=== PATIENT | female | born 2000 | race American Indian/Alaskan Native ===

== ENCOUNTER 2021-08-29 14:48 | Emergency (ER) | payer OTHER ==
[2021-08-29] MEDS ORDERED: SODIUM CHLORIDE 0.9% 1000 ML 1,000 ML IV ONE ×4 (15:01→19:02)
--- NOTE | 2021-08-29 15:01 | Emergency Department Report ---
HPI - General Chief Complaint: Altered Mental Status Time Seen by Provider: 08/29/21 14:54 - HPI HPI: 21-year-old female brought in by mom with altered mental status as well as complaint of abdominal pain and vomiting. According to the patient's mom, after waking up this morning around 10 AM she began to complain of abdominal cramping which she attributed to her menstrual period which started this morning. Then she began vomiting and mom noted that she seemed confused. While on the way to the emergency room mom says she vomited green appearing emesis. Since then she has been alternating between screaming agitation and complaining of abdominal pain and then becoming very somnolent to the point of almost losing consciousness. The patient denies taking any substances or medications of any kind. Mom says she did ask for Aleve but did not witness the patient take it. The patient states that she has abdominal pain which is very severe and all over. She is unable to localize the pain and says that it also goes to her back. She denies any associated fever, headache, neck pain, chest pain, shortness of breath, dysuria, significant vaginal bleeding, or any other complaints. Nonetheless, details of the HPI are limited by the patient's c urrent clinical condition. ED Past Medical Hx - Past Medical History Previous Medical History?: No - Surgical History Past Surgical History?: No - Social History Smoking Status: Never Smoker Substance Use Type: None - Medications Home Medications: Home Medications Medication Instructions Recorded Confirmed Last Taken Type Ondansetron [Zofran Odt] 4 mg PO Q8HR PRN #5 tab.rapdis 08/29/21 Unknown Rx ED Review of Systems ROS: Stated complaint: INGESTION Other details as noted in HPI Comment: Unobtainable due to pts medical conditions Physical Exam - Physical Exam Physical Exam: GENERAL: Well developed and well nourished. Alternating between extreme somnolence and extreme agitation, writhing in complaining of abdominal pain. HEAD: Normocephalic. No obvious signs of trauma. ENT: Very dry mucous membranes. EYES: Extraocular movements are intact. Pupils are equal round and reactive to light bilaterally NECK: Supple. Full ROM is intact. Trachea is midline. LUNGS: Tachypneic. Equal chest rise bilaterally. Clear to auscultation bilat erally. CARDIOVASCULAR: Tachycardic but with regular rhythm. No murmurs or rubs. VASCULAR: Cap refill < 2 seconds ABDOMEN: Abdomen is soft and nondistended. There is diffuse tenderness in all 4 quadrants of the abdomen without guarding or rebound tenderness. SKIN: Skin is warm and dry NEURO: Patient alternates between severe agitation and writhing around and severe somnolence. After a few moments she became calm for a period of time and was able to follow commands for full neurologic exam. police liaison officer II-XII grossly intact. No focal deficits. Normal motor and sensory exam throughout. Normal speech. MUSCULOSKELETAL: No obvious deformities. No significant tenderness. Normal ROM throughout. BACK/SPINE: No midline tenderness or step-offs of the C/T/L spine. No costovertebral angle tenderness. ED Medical Decision Making - Lab Data Result diagrams: 08/29/21 15:00 08/29/21 15:00 Lab Results 08/29/21 08/29/21 08/29/21 Range/Units 15:00 15:00 15:00 WBC 8.4 (4.5-11.0) K/mm3 RBC 4.71 (3.65-5.03) M/mm3 Hgb 13.8 (10.1-14.3) gm/dl Hct 41.3 (30.3-42.9) % MCV 88 (79-97) fl MCH 29 (28-32) pg MCHC 34 (30-34) % RDW 13.9 (13.2-15.2) % Plt Count 253 (140-440) K/mm3 Lymph % (Auto) 10.5 L (13.4-35.0) % Weston % (Auto) 3.6 (0.0-7.3) % Eos % (Auto) 1.5 (0.0-4.3) % Baso % (Auto) 0.5 (0.0-1.8) % Lymph # (Auto) 0.9 L (1.2-5.4) K/mm3 Weston # (Auto) 0.3 (0.0-0.8) K/mm3 Eos # (Auto) 0.1 (0.0-0.4) K/mm3 Baso # (Auto) 0.0 (0.0-0.1) K/mm3 Seg Neutrophils % 83.9 H (40.0-70.0) % Seg Neutrophils # 7.0 (1.8-7.7) K/mm3 PT (12.2-14.9) Sec. INR (0.87-1.13) APTT (24.2-36.6) Sec. Sodium 138 (137-145) mmol/L Potassium 3.3 L (3.6-5.0) mmol/L Chloride 103.0 (98-107) mmol/L Carbon Dioxide 21 L (22-30) mmol/L Anion Gap 17 mmol/L BUN 10 (7-17) mg/dL Creatinine 0.8 (0.6-1.2) mg/dL Estimated GFR > 60 ml/min BUN/Creatinine Ratio 13 % Glucose 162 H (65-100) mg/dL Lactic Acid (0.7-2.0) mmol/L Calcium 9.5 (8.4-10.2) mg/dL Magnesium 1.60 L (1.7-2.3) mg/dL Total Bilirubin 0.70 (0.1-1.2) mg/dL Direct Bilirubin < 0.2 (0-0.2) mg/dL Indirect Bilirubin 0.5 mg/dL AST 15 (5-40) units/L ALT 17 (7-56) units/L Alkaline Phosphatase 72 (35-129) units/L Ammonia (25-60) umol/L Troponin T < 0.010 (0.00-0.029) ng/mL Total Protein 7.2 (6.3-8.2) g/dL Albumin 4.3 (3.9-5) g/dL Albumin/Globulin Ratio 1.5 % Lipase 11 L (13-60) units/L HCG, Qual (Negative) Urine Color (Yellow) Urine Turbidity (Clear) Urine pH (5.0-7.0) Ur Specific Herald (1.003-1.030) Urine Protein (Negative) mg/dL Urine Glucose (UA) (Negative) mg/dL Urine Ketones (Negative) mg/dL Urine Blood (Negative) Urine Nitrite (Negative) Urine Bilirubin (Negative) Urine Urobilinogen (<2.0) mg/dL Ur Leukocyte Esterase (Negative) Urine WBC (Auto) (0.0-6.0) /HPF Urine RBC (Auto) (0.0-6.0) /HPF U Epithel Cells (Auto) (0-13.0) /HPF Urine Bacteria (Auto) (Negative) /HPF Urine Mucus /HPF Salicylates (2.8-20.0) mg/dL Urine Opiates Screen Urine Methadone Screen Acetaminophen (10.0-30.0) ug/mL Ur Barbiturates Screen Ur Phencyclidine Scrn Ur Amphetamines Screen U Benzodiazepines Scrn Urine Cocaine Screen U Marijuana (THC) Screen Drugs of Abuse Note Plasma/Serum Alcohol (0-0.07) % 08/29/21 08/29/21 08/29/21 Range/Units 15:00 15:00 15:00 WBC (4.5-11.0) K/mm3 RBC (3.65-5.03) M/mm3 Hgb (10.1-14.3) gm/dl Hct (30.3-42.9) % MCV (79-97) fl MCH (28-32) pg MCHC (30-34) % RDW (13.2-15.2) % Plt Count (140-440) K/mm3 Lymph % (Auto) (13.4-35.0) % Weston % (Auto) (0.0-7.3) % Eos % (Auto) (0.0-4.3) % Baso % (Auto) (0.0-1.8) % Lymph # (Auto) (1.2-5.4) K/mm3 Weston # (Auto) (0.0-0.8) K/mm3 Eos # (Auto) (0.0-0.4) K/mm3 Baso # (Auto) (0.0-0.1) K/mm3 Seg Neutrophils % (40.0-70.0) % Seg Neutrophils # (1.8-7.7) K/mm3 PT (12.2-14.9) Sec. INR (0.87-1.13) APTT (24.2-36.6) Sec. Sodium (137-145) mmol/L Potassium (3.6-5.0) mmol/L Chloride (98-107) mmol/L Carbon Dioxide (22-30) mmol/L Anion Gap mmol/L BUN (7-17) mg/dL Creatinine (0.6-1.2) mg/dL Estimated GFR ml/min BUN/Creatinine Ratio % Glucose (65-100) mg/dL Lactic Acid (0.7-2.0) mmol/L Calcium (8.4-10.2) mg/dL Magnesium (1.7-2.3) mg/dL Total Bilirubin (0.1-1.2) mg/dL Direct Bilirubin (0-0.2) mg/dL Indirect Bilirubin mg/dL AST (5-40) units/L ALT (7-56) units/L Alkaline Phosphatase (35-129) units/L Ammonia (25-60) umol/L Troponin T (0.00-0.029) ng/mL Total Protein (6.3-8.2) g/dL Albumin (3.9-5) g/dL Albumin/Globulin Ratio % Lipase (13-60) units/L HCG, Qual (Negative) Urine Color (Yellow) Urine Turbidity (Clear) Urine pH (5.0-7.0) Ur Specific Herald (1.003-1.030) Urine Protein (Negative) mg/dL Urine Glucose (UA) (Negative) mg/dL Urine Ketones (Negative) mg/dL Urine Blood (Negative) Urine Nitrite (Negative) Urine Bilirubin (Negative) Urine Urobilinogen (<2.0) mg/dL Ur Leukocyte Esterase (Negative) Urine WBC (Auto) (0.0-6.0) /HPF Urine RBC (Auto) (0.0-6.0) /HPF U Epithel Cells (Auto) (0-13.0) /HPF Urine Bacteria (Auto) (Negative) /HPF Urine Mucus /HPF Salicylates < 0.3 L (2.8-20.0) mg/dL Urine Opiates Screen Urine Methadone Screen Acetaminophen 5.0 L (10.0-30.0) ug/mL Ur Barbiturates Screen Ur Phencyclidine Scrn Ur Amphetamines Screen U Benzodiazepines Scrn Urine Cocaine Screen U Marijuana (THC) Screen Drugs of Abuse Note Plasma/Serum Alcohol < 0.01 (0-0.07) % 08/29/21 08/29/21 08/29/21 Range/Units 15:00 15:14 15:14 WBC (4.5-11.0) K/mm3 RBC (3.65-5.03) M/mm3 Hgb (10.1-14.3) gm/dl Hct (30.3-42.9) % MCV (79-97) fl MCH (28-32) pg MCHC (30-34) % RDW (13.2-15.2) % Plt Count (140-440) K/mm3 Lymph % (Auto) (13.4-35.0) % Weston % (Auto) (0.0-7.3) % Eos % (Auto) (0.0-4.3) % Baso % (Auto) (0.0-1.8) % Lymph # (Auto) (1.2-5.4) K/mm3 Weston # (Auto) (0.0-0.8) K/mm3 Eos # (Auto) (0.0-0.4) K/mm3 Baso # (Auto) (0.0-0.1) K/mm3 Seg Neutrophils % (40.0-70.0) % Seg Neutrophils # (1.8-7.7) K/mm3 PT 14.1 (12.2-14.9) Sec. INR 0.98 (0.87-1.13) APTT 25.7 (24.2-36.6) Sec. Sodium (137-145) mmol/L Potassium (3.6-5.0) mmol/L Chloride (98-107) mmol/L Carbon Dioxide (22-30) mmol/L Anion Gap mmol/L BUN (7-17) mg/dL Creatinine (0.6-1.2) mg/dL Estimated GFR ml/min BUN/Creatinine Ratio % Glucose (65-100) mg/dL Lactic Acid 2.60 H* (0.7-2.0) mmol/L Calcium (8.4-10.2) mg/dL Magnesium (1.7-2.3) mg/dL Total Bilirubin (0.1-1.2) mg/dL Direct Bilirubin (0-0.2) mg/dL Indirect Bilirubin mg/dL AST (5-40) units/L ALT (7-56) units/L Alkaline Phosphatase (35-129) units/L Ammonia (25-60) umol/L Troponin T (0.00-0.029) ng/mL Total Protein (6.3-8.2) g/dL Albumin (3.9-5) g/dL Albumin/Globulin Ratio % Lipase (13-60) units/L HCG, Qual Negative (Negative) Urine Color (Yellow) Urine Turbidity (Clear) Urine pH (5.0-7.0) Ur Specific Herald (1.003-1.030) Urine Protein (Negative) mg/dL Urine Glucose (UA) (Negative) mg/dL Urine Ketones (Negative) mg/dL Urine Blood (Negative) Urine Nitrite (Negative) Urine Bilirubin (Negative) Urine Urobilinogen (<2.0) mg/dL Ur Leukocyte Esterase (Negative) Urine WBC (Auto) (0.0-6.0) /HPF Urine RBC (Auto) (0.0-6.0) /HPF U Epithel Cells (Auto) (0-13.0) /HPF Urine Bacteria (Auto) (Negative) /HPF Urine Mucus /HPF Salicylates (2.8-20.0) mg/dL Urine Opiates Screen Urine Methadone Screen Acetaminophen (10.0-30.0) ug/mL Ur Barbiturates Screen Ur Phencyclidine Scrn Ur Amphetamines Screen U Benzodiazepines Scrn Urine Cocaine Screen U Marijuana (THC) Screen Drugs of Abuse Note Plasma/Serum Alcohol (0-0.07) % 08/29/21 08/29/21 08/29/21 Range/Units 15:14 17:49 19:07 WBC (4.5-11.0) K/mm3 RBC (3.65-5.03) M/mm3 Hgb (10.1-14.3) gm/dl Hct (30.3-42.9) % MCV (79-97) fl MCH (28-32) pg MCHC (30-34) % RDW (13.2-15.2) % Plt Count (140-440) K/mm3 Lymph % (Auto) (13.4-35.0) % Weston % (Auto) (0.0-7.3) % Eos % (Auto) (0.0-4.3) % Baso % (Auto) (0.0-1.8) % Lymph # (Auto) (1.2-5.4) K/mm3 Weston # (Auto) (0.0-0.8) K/mm3 Eos # (Auto) (0.0-0.4) K/mm3 Baso # (Auto) (0.0-0.1) K/mm3 Seg Neutrophils % (40.0-70.0) % Seg Neutrophils # (1.8-7.7) K/mm3 PT (12.2-14.9) Sec. INR (0.87-1.13) APTT (24.2-36.6) Sec. Sodium (137-145) mmol/L Potassium (3.6-5.0) mmol/L Chloride (98-107) mmol/L Carbon Dioxide (22-30) mmol/L Anion Gap mmol/L BUN (7-17) mg/dL Creatinine (0.6-1.2) mg/dL Estimated GFR ml/min BUN/Creatinine Ratio % Glucose (65-100) mg/dL Lactic Acid 2.50 H* (0.7-2.0) mmol/L Calcium (8.4-10.2) mg/dL Magnesium (1.7-2.3) mg/dL Total Bilirubin (0.1-1.2) mg/dL Direct Bilirubin (0-0.2) mg/dL Indirect Bilirubin mg/dL AST (5-40) units/L ALT (7-56) units/L Alkaline Phosphatase (35-129) units/L Ammonia 12.0 L (25-60) umol/L Troponin T (0.00-0.029) ng/mL Total Protein (6.3-8.2) g/dL Albumin (3.9-5) g/dL Albumin/Globulin Ratio % Lipase (13-60) units/L HCG, Qual (Negative) Urine Color Straw (Yellow) Urine Turbidity Clear (Clear) Urine pH 8.0 H (5.0-7.0) Ur Specific Herald > 1.030 H (1.003-1.030) Urine Protein <15 mg/dl (Negative) mg/dL Urine Glucose (UA) Neg (Negative) mg/dL Urine Ketones 20 (Negative) mg/dL Urine Blood Mod (Negative) Urine Nitrite Neg (Negative) Urine Bilirubin Neg (Negative) Urine Urobilinogen < 2.0 (<2.0) mg/dL Ur Leukocyte Esterase Neg (Negative) Urine WBC (Auto) 2.0 (0.0-6.0) /HPF Urine RBC (Auto) 44.0 (0.0-6.0) /HPF U Epithel Cells (Auto) 6.0 (0-13.0) /HPF Urine Bacteria (Auto) 1+ (Negative) /HPF Urine Mucus Few /HPF Salicylates (2.8-20.0) mg/dL Urine Opiates Screen Urine Methadone Screen Acetaminophen (10.0-30.0) ug/mL Ur Barbiturates Screen Ur Phencyclidine Scrn Ur Amphetamines Screen U Benzodiazepines Scrn Urine Cocaine Screen U Marijuana (THC) Screen Drugs of Abuse Note Plasma/Serum Alcohol (0-0.07) % 08/29/21 Range/Units 19:07 WBC (4.5-11.0) K/mm3 RBC (3.65-5.03) M/mm3 Hgb (10.1-14.3) gm/dl Hct (30.3-42.9) % MCV (79-97) fl MCH (28-32) pg MCHC (30-34) % RDW (13.2-15.2) % Plt Count (140-440) K/mm3 Lymph % (Auto) (13.4-35.0) % Weston % (Auto) (0.0-7.3) % Eos % (Auto) (0.0-4.3) % Baso % (Auto) (0.0-1.8) % Lymph # (Auto) (1.2-5.4) K/mm3 Weston # (Auto) (0.0-0.8) K/mm3 Eos # (Auto) (0.0-0.4) K/mm3 Baso # (Auto) (0.0-0.1) K/mm3 Seg Neutrophils % (40.0-70.0) % Seg Neutrophils # (1.8-7.7) K/mm3 PT (12.2-14.9) Sec. INR (0.87-1.13) APTT (24.2-36.6) Sec. Sodium (137-145) mmol/L Potassium (3.6-5.0) mmol/L Chloride (98-107) mmol/L Carbon Dioxide (22-30) mmol/L Anion Gap mmol/L BUN (7-17) mg/dL Creatinine (0.6-1.2) mg/dL Estimated GFR ml/min BUN/Creatinine Ratio % Glucose (65-100) mg/dL Lactic Acid (0.7-2.0) mmol/L Calcium (8.4-10.2) mg/dL Magnesium (1.7-2.3) mg/dL Total Bilirubin (0.1-1.2) mg/dL Direct Bilirubin (0-0.2) mg/dL Indirect Bilirubin mg/dL AST (5-40) units/L ALT (7-56) units/L Alkaline Phosphatase (35-129) units/L Ammonia (25-60) umol/L Troponin T (0.00-0.029) ng/mL Total Protein (6.3-8.2) g/dL Albumin (3.9-5) g/dL Albumin/Globulin Ratio % Lipase (13-60) units/L HCG, Qual (Negative) Urine Color (Yellow) Urine Turbidity (Clear) Urine pH (5.0-7.0) Ur Specific Herald (1.003-1.030) Urine Protein (Negative) mg/dL Urine Glucose (UA) (Negative) mg/dL Urine Ketones (Negative) mg/dL Urine Blood (Negative) Urine Nitrite (Negative) Urine Bilirubin (Negative) Urine Urobilinogen (<2.0) mg/dL Ur Leukocyte Esterase (Negative) Urine WBC (Auto) (0.0-6.0) /HPF Urine RBC (Auto) (0.0-6.0) /HPF U Epithel Cells (Auto) (0-13.0) /HPF Urine Bacteria (Auto) (Negative) /HPF Urine Mucus /HPF Salicylates (2.8-20.0) mg/dL Urine Opiates Screen Presumptive negative Urine Methadone Screen Presumptive negative Acetaminophen (10.0-30.0) ug/mL Ur Barbiturates Screen Presumptive negative Ur Phencyclidine Scrn Presumptive negative Ur Amphetamines Screen Presumptive negative U Benzodiazepines Scrn Presumptive negative Urine Cocaine Screen Presumptive negative U Marijuana (THC) Screen Presumptive positive Drugs of Abuse Note Disclamer Plasma/Serum Alcohol (0-0.07) % - Radiology Data Radiology results: report reviewed - Medical Decision Making 21-year-old female brought in by mom altered mental status and complaining of severe diffuse abdominal pain and profuse vomiting. Patient alternates between extreme somnolence and agitation complaining of severe abdominal pain. She is afebrile and with normal vital signs. Physical exam reveals very dry mucous membranes. She has diffuse abdominal tenderness throughout without guarding or rebound. She has no CVA tenderness. She has a nonfocal neurologic exam when she calms down and participates with the exam. Mom says she typically has very painful menstrual periods but is never had a presentation this dramatic. We will perform broad work-up with a full set of labs and CT of the head to assess for evidence of intracranial bleeding, mass, or any other intracranial abnormality explain the patient's symptoms. We will also perform CT of the abdomen pelvis with IV contrast to assess for evidence of colitis, appendicitis, diverticulitis, pancreatitis, or any other intra-abdominal or pelvic abnormality explain the patient's symptoms. We will give 1 L of IV fluids and Zofran for now. On repeat assessment at 3 PM, the patient is much more calm and participates with the exam. She states that she typically has very painful menstrual periods and that this is typical of her painful menstrual periods. Labs revealed no significant leukocytosis or anemia. Kidney function is normal. She has hypokalemia and hypomagnesemia which we will replete. She does have an elevated lactate of 2.6. Head CT shows no acute abnormalities. Contrasted CT of the abdomen pelvis reveals no acute abnormalities. At 5:45 PM, the patient is again complaining of pain and vomiting. We will give an additional dose of Zofran and obtain pelvic ultrasound to assess the ovaries including blood flow. Pelvic ultrasound reveals no acute abnormalities and normal blood flow to both ovaries. Patient reports burning pain in her chest when she lays down, which I suspect is related to her vomiting. We will give 40 mg of famotidine and reassess. On repeat assessment, the patient is now calm and reports no pain or nausea. She says that this is typical of her menstrual periods. Although the patient had elevated lactate, she has had no fever and normal vital signs. She has no leukocytosis. She had a negative chest x-ray urinalysis does not show evidence of infection. I strongly suspect that her elevated lactate was secondary to hypovolemia from vomiting. She is been given a total of 3 L of IV fluids and feels much better. I talked with both the patient and her mom who say that they want to go home and follow-up with an [facility]OR [facility]. I advised him to return to the emergency department should she develop worsening symptoms, profuse vomiting with inability to tolerate p.o., or for any other new concerns. They expressed understanding and agreement with this plan of care. Critical care attestation.: If time is entered above; I have spent that time in minutes in the direct care of this critically ill patient, excluding procedure time. ED Disposition Clinical Impression: Severe dehydration, Menstrual cramps, Generalized abdominal pain Disposition: HOME / SELF CARE / HOMELESS Is pt being admited?: No Condition: Stable Instructions: Abdominal Pain, Adult, Dehydration, Adult, [id number], Rehydration, Adult, Dysmenorrhea Additional Instructions: You have been given a referral to an FLOOR W[facility]. You should follow up with a primary care doctor in the next 1 to 2 days. Return to the emergency department should you develop significantly worsening symptoms or for any other new health concerns. Prescriptions: Ondansetron [Zofran Odt] 4 mg PO Q8HR PRN #5 tab.rapdis PRN Reason: Nausea And Vomiting Referrals: PRIMARY CARE, [Primary Care Provider] - 3-5 Days GABY ROLDAN MD [Staff Physician] - 3-5 Days
[2021-08-29 15:16] LABS: Basophils % (Auto) 0.5 % (0.0-1.8); Eosinophils # (Auto) 0.1 K/mm3 (0.0-0.4); Eosinophils % (Auto) 1.5 % (0.0-4.3); Hematocrit 41.3 % (30.3-42.9); Hemoglobin 13.8 gm/dl (10.1-14.3); Lymphocytes # (Auto) 0.9 K/mm3 (1.2-5.4); Lymphocytes % (Auto) 10.5 % (13.4-35.0); Mean Corpuscular HGB Conc 34 % (30-34); Mean Corpuscular Volume 88 fl (79-97); Monocytes # (Auto) 0.3 K/mm3 (0.0-0.8); Monocytes % (Auto) 3.6 % (0.0-7.3); Platelet Count 253 K/mm3 (140-440); Red Blood Count 4.71 M/mm3 (3.65-5.03); Red Cell Distribution Width 13.9 % (13.2-15.2)
[2021-08-29 15:38] LABS: Alanine Aminotransferase 17 units/L (7-56); Albumin 4.3 g/dL (3.9-5); BUN/Creatinine Ratio 13; Blood Urea Nitrogen 10 mg/dL (7-17); Calcium 9.5 mg/dL (8.4-10.2); Hemolysis Index 10
[2021-08-29 15:39] LABS: Bilirubin,Direct < 0.2 mg/dL (0-0.2)
[2021-08-29 15:44] LABS: INR 0.98 (0.87-1.13); Partial Thromboplastin Time 25.7 Sec. (24.2-36.6)
[2021-08-29] MEDS ORDERED: ONDANSETRON 4 MG/2 ML INJ IV ONE ×2 (16:20→16:40)
--- NOTE | 2021-08-29 16:20 | Cat Scan Report ---
NONENHANCED CT SCAN OF THE HEAD: INDICATION / CLINICAL INFORMATION: 21 years Female; AMS. TECHNIQUE: Routine CT head without contrast. All CT scans at this location are performed using CT dos e reduction for ALARA by means of automated exposure control. COMPARISON: None. FINDINGS: BRAIN / INTRACRANIAL CONTENTS: No acute hemorrhage, mass effect, midline shift, hydrocephalus, or acu te, large territorial infarct. No chronic infarct or focal atrophy. Normal brain volume and ventricul ar/sulcal size for age. No significant white matter abnormality. CRANIOCERVICAL JUNCTION: No significant abnormality. ORBITS: No significant abnormality of visualized orbits. SINUSES / MASTOIDS: No significant abnormality of the visualized paranasal sinuses or mastoid air maxine ls. ADDITIONAL FINDINGS: None. IMPRESSION: No focal parenchymal lesion Signer Name: Lucero Elizabeth MD Signed: 08/29/2021 4:16 PM Workstation Name: [id number]
--- NOTE | 2021-08-29 16:23 | Cat Scan Report ---
CT ABDOMEN AND PELVIS WITH IV CONTRAST INDICATION: abd tenderness. COMPARISON: None available. TECHNIQUE: All CT scans at this facility use dose modulation, automated exposure control, iterative reconstructi on or weight based dosing, when appropriate, to reduce radiation dose to as low as reasonably achieva ble. FINDINGS: Lung Bases: 5 mm nodule within the left lower lobe on axial image 14 may be inflammatory. Skeletal System: No acute abnormality. ABDOMEN: Liver: No significant abnormality. Gallbladder: No significant abnormality. Bile Ducts: No significant abnormality. Adrenals: No significant abnormality. Right Kidney: No significant abnormality. Left Kidney: No significant abnormality. Pancreas: No significant abnormality. Spleen: No significant abnormality. Upper GI tract: No significant abnormality. Lymph Nodes: No significant adenopathy. Aorta: No significant abnormality. Additional Findings: No significant abnormality. PELVIS: Colon: No acute abnormality. Urinary Bladder and Distal Ureters: No significant abnormality. Appendix: No significant abnormality. Lymph Nodes: No significant adenopathy. Additional Findings: None. IMPRESSION: 1. No acute process in the abdomen or pelvis. 2. Incidental findings, as above. Signer Name: Mitchell Dudely MD Signed: 08/29/2021 4:18 PM Workstation Name: [id number]
--- NOTE | 2021-08-29 16:29 | XRay Report ---
CHEST 1 VIEW INDICATION: sepsis. COMPARISON: None. FINDINGS: Support devices: None. Heart: Normal. Lungs/Pleura: No acute pulmonary or pleural findings. IMPRESSION: 1. No acute findings. Signer Name: Mitchell Dudley MD Signed: 08/29/2021 4:25 PM Workstation Name: [id number]
[2021-08-29] MEDS ORDERED: KETOROLAC 30 MG/1 ML INJ IV ONE (16:41)
[2021-08-29] MEDS ORDERED: FAMOTIDINE 20 MG TAB PO ONE (16:41)
[2021-08-29] MEDS ORDERED: POTASSIUM CHLORIDE ER 20 MEQ TAB PO ONE (17:00)
[2021-08-29] MEDS ORDERED: MAGNESIUM SULFATE 1 GM in SODIUM CHLORIDE 0.9% 50 ML IV ONE (17:30)
--- NOTE | 2021-08-29 18:15 | Ultrasound Report ---
ULTRASOUND PELVIS INDICATION / CLINICAL INFORMATION: eval ovaries and uterus. Blood flow to ovaries. TECHNIQUE: Transabdominal. Duplex Color Doppler used: Yes. COMPARISON: CT scan dated 08/29/2021 FINDINGS: UTERUS: Uterus measures 8.2 cm in length. Endometrial stripe measures 1.5 cm. RIGHT ADNEXA: No significant ovarian cyst or mass. Normal color Doppler blood flow. LEFT ADNEXA: No significant ovarian cyst or mass. Normal color Doppler blood flow. URINARY BLADDER: No significant abnormality. FREE FLUID: None. ADDITIONAL FINDINGS: None. IMPRESSION: 1. No significant abnormality. Signer Name: Booker Joshua MD Signed: 08/29/2021 6:10 PM Workstation Name: [id number]
[2021-08-29] MEDS ORDERED: FAMOTIDINE 20 MG/2 ML INJ IV ONE (18:58)
[2021-08-29 19:10] VITALS: BP 128/89
[2021-08-29 19:30] LABS: Bacteria,Urine 1+ /HPF (Negative); Bilirubin,Urine NEG (Negative); Blood,Urine MOD (Negative); Color,Urine Straw (Yellow); Mucus,Urine FEW /HPF; Protein,Urine <15 mg/dL mg/dL (Negative); Urobilinogen,Urine < 2.0 mg/dL (<2.0)
[2021-08-29 19:42] LABS: Amphetamine Screen,Urine PRESUMPTIVE NEGATIVE; Benzodiazepines Screen,Urine PRESUMPTIVE NEGATIVE; Cannabinoid Screen,Urine PRESUMPTIVE POSITIVE; Cocaine Screen,Urine PRESUMPTIVE NEGATIVE; Methadone Screen,Urine PRESUMPTIVE NEGATIVE; Opiate Screen,Urine PRESUMPTIVE NEGATIVE
== END 2021-08-30 05:32 | disposition home or self-care (01) ==
LOC: ED 14:48
DX: E86.0 Dehydration (principal); N94.6 Dysmenorrhea, unspecified; R10.9 Unspecified abdominal pain
CPT/HCPCS: 36415; 70450; 71045; 74177; 76856; 80048; 80076; 80307; 81001; 82140; 83690; 83735; 84484; 84703; 85025; 85610; 85730; 87040; 87086; 96374; 96375; 96376; 99284; J1885; J2405; J3475; J7030; Q9967; 80320; Q0162; G0480

== ENCOUNTER 2021-09-24 02:40 | Emergency (ER) | payer SELFPAY ==
[2021-09-24 02:45] VITALS: BP 144/96
--- NOTE | 2021-09-24 05:57 | Emergency Department Report ---
ED General Adult HPI - General Chief complaint: Rectal Pain Stated complaint: RECTAL BLEEDING Source: patient Mode of arrival: Ambulatory Limitations: No Limitations - History of Present Illness Initial comments: Patient is nulliparous 21-year-old -[place] female with no past medical history presented to the ED with complaint of acute onset persistent rectal pain with intermittent bleeding for the last 1 week, worse in the last 2 days. Patient states that her bowel movement has been normal except for occasional constipation. Patient denies abdominal pain, nausea, vomiting, diarrhea, dysuria, urinary frequency and urgency,, chest pain or shortness of breath, back pain, vaginal bleeding or vaginal discharge. MD Complaint: Rectal pain -: Sudden, week(s) (1) Location: buttocks Radiation: non-radiation Severity scale (0 -10): 7 Quality: aching, sharp Consistency: constant Improves with: none Worsens with: movement, other (Bowel movement) Associated Symptoms: denies other symptoms. denies: chest pain, cough, diaphoresis, fever/chills, headaches, loss of appetite, malaise, nausea/vomiting, seizure, shortness of breath, syncope, weakness, other Treatments Prior to Arrival: none - Related Data Previous Rx's Medication Instructions Recorded Last Taken Type Ondansetron [Zofran Odt] 4 mg PO Q8HR PRN #5 tab.rapdis 08/29/21 Unknown Rx Dibucaine 1% [Nupercainal] 1 applicatio LA TID PRN #1 tube 09/24/21 Unknown Rx Docusate Sodium [Dok] 100 mg PO DAILY #60 cap 09/24/21 Unknown Rx Naproxen 500 mg PO Q12H PRN #30 tab 09/24/21 Unknown Rx Allergies Allergy/AdvReac Type Severity Reaction Status Date / Time No Known Allergies Allergy Unverified 08/29/21 16:08 ED Review of Systems ROS: Stated complaint: RECTAL BLEEDING Other details as noted in HPI Constitutional: denies: chills, fever Eyes: denies: eye pain, eye discharge, vision change ENT: denies: ear pain, throat pain Respiratory: denies: cough, shortness of breath, wheezing Cardiovascular: denies: chest pain, palpitations Endocrine: no symptoms reported Gastrointestinal: other (Rectal pain and occasional bleeding). denies: abdominal pain, nausea, vomiting, diarrhea, hematemesis Genitourinary: denies: urgency, dysuria, frequency, hematuria, discharge Musculoskeletal: denies: back pain, joint swelling, arthralgia Skin: denies: rash, lesions Neurological: denies: headache, weakness, paresthesias Psychiatric: denies: anxiety, depression Hematological/Lymphatic: denies: easy bleeding, easy bruising ED Past Medical Hx - Past Medical History Previous Medical History?: No - Surgical History Past Surgical History?: No - Social History Smoking Status: Never Smoker Substance Use Type: None - Medications Home Medications: Home Medications Medication Instructions Recorded Confirmed Last Taken Type Ondansetron [Zofran Odt] 4 mg PO Q8HR PRN #5 tab.rapdis 08/29/21 Unknown Rx Dibucaine 1% [Nupercainal] 1 applicatio LA TID PRN #1 tube 09/24/21 Unknown Rx Docusate Sodium [Dok] 100 mg PO DAILY #60 cap 09/24/21 Unknown Rx Naproxen 500 mg PO Q12H PRN #30 tab 09/24/21 Unknown Rx ED Physical Exam - General Limitations: No Limitations General appearance: alert, in no apparent distress - Head Head exam: Present: atraumatic, normocephalic, normal inspection - Eye Eye exam: Present: normal appearance, PERRL, EOMI Pupils: Present: normal accommodation - ENT ENT exam: Present: normal exam, normal orophraynx, mucous membranes moist, TM's normal bilaterally, normal external ear exam - Neck Neck exam: Present: normal inspection, full ROM - Respiratory Respiratory exam: Present: normal lung sounds bilaterally. Absent: respiratory distress, wheezes, rales, stridor, accessory muscle use, decreased breath sounds, prolonged expiratory - Cardiovascular Cardiovascular Exam: Present: regular rate, normal rhythm, normal heart sounds. Absent: systolic murmur, diastolic murmur, rubs, gallop - GI/Abdominal GI/Abdominal exam: Present: soft, normal bowel sounds. Absent: tenderness, rebound, hyperactive bowel sounds, hypoactive bowel sounds, organomegaly - Rectal Rectal exam: Present: hemorrhoids (External hemorrhoid with tenderness), tenderness, other (Female RN gastroenterology physician Francisco Kirt present) - Extremities Exam Extremities exam: Present: normal inspection, full ROM, normal capillary refill - Back Exam Back exam: Present: normal inspection, full ROM. Absent: tenderness, CVA tenderness (R), CVA tenderness (L), muscle spasm, paraspinal tenderness - Neurological Exam Neurological exam: Present: alert, oriented X3, CN II-XII intact, normal gait, reflexes normal - Psychiatric Psychiatric exam: Present: normal affect, normal mood - Skin Skin exam: Present: warm, dry, intact, normal color. Absent: rash ED Course Vital Signs 09/24/21 02:44 Temperature 98.1 F Pulse Rate 95 H Respiratory 18 Rate Blood Pressure 144/96 O2 Sat by Pulse 100 Oximetry ED Medical Decision Making - Medical Decision Making This is nulliparous 21-year-old -[place] female with no past medical history presented to the ED with complaint of acute onset persistent rectal pain with intermittent bleeding for the last 1 week, worse in the last 2 days. Patient states that her bowel movement has been normal except for occasional constipation. The ED, patient is alert and oriented x3 and is not in any distress. Physical exam reveals external tender hemorrhoid but no active bleeding at this time. Patient was discharged home on medications and advised to follow-up with her primary care physician in 5 to 7 days for reevaluation. Patient also is encouraged to eat more of high-fiber diet and drink more water to prevent uncontrolled constipation. Patient is advised return to the ED immediately if symptoms get worse. - Differential Diagnosis Constipation; external hemorrhoids; rectal abscess Critical care attestation.: If time is entered above; I have spent that time in minutes in the direct care of this critically ill patient, excluding procedure time. ED Disposition Clinical Impression: External hemorrhoids without complication, Chronic constipation Disposition: HOME / SELF CARE / HOMELESS Is pt being admited?: No Does the pt Need Aspirin: No Condition: Stable Instructions: Hemorrhoids, [id number], Nonsurgical Procedures for Hemorrhoids, Constipation, Adult, [id number] Additional Instructions: Take and apply the medication of the appropriate area as advised, drink plenty of fluids and follow-up with your primary care physician in 3 to 5 days for reevaluation. Return to the ED immediately if symptoms get worse. Prescriptions: Docusate Sodium [Dok] 100 mg PO DAILY #60 cap Naproxen 500 mg PO Q12H PRN #30 tab PRN Reason: Pain , Severe (7-10) Dibucaine 1% [Nupercainal] 1 applicatio LA TID PRN #1 tube PRN Reason: Rectal pain Referrals: [facility] [Provider Group] - 3-5 Days Time of Disposition: 06:00 Print Language: TONGAN
== END 2021-09-24 06:44 | disposition home or self-care (01) ==
LOC: ED 02:40
DX: K64.4 Residual hemorrhoidal skin tags (principal); K59.09 Other constipation
CPT/HCPCS: 99282

== ENCOUNTER 2021-11-01 09:31 | Emergency (ER) | payer SELFPAY ==
--- NOTE | 2021-11-01 10:22 | Emergency Department Report ---
ED General Adult HPI - General Chief complaint: Rectal Pain Stated complaint: RECTAL PAIN PUI?: No Time Seen by Provider: 11/01/21 10:17 Source: patient Mode of arrival: Ambulatory Limitations: No Limitations - History of Present Illness Initial comments: 21 yo obese AA female comes in with a/c hemorrhoids. Seen here in the past for the same and states the cream is not working. SHe did not follow up as instructed. Denies bleeding. ambulatory and non ill appearing on arrival to ER -: Gradual, week(s) Worsens with: none Associated Symptoms: denies other symptoms. denies: confusion, chest pain, cough, diaphoresis, fever/chills, headaches, loss of appetite, malaise, nausea/vomiting, rash, seizure, shortness of breath, syncope, weakness Treatments Prior to Arrival: none - Related Data Previous Rx's Medication Instructions Recorded Last Taken Type Docusate Sodium [Colace] 100 mg PO BID #60 capsule 11/01/21 Unknown Rx Phenylephrine HCl/[place] Butter 1 each RC DAILY #10 11/01/21 Unknown Rx [Preparation H Suppository] Allergies Allergy/AdvReac Type Severity Reaction Status Date / Time No Known Allergies Allergy Unverified 08/29/21 16:08 ED Review of Systems ROS: Stated complaint: RECTAL PAIN Other details as noted in HPI Comment: All other systems reviewed and negative ED Past Medical Hx - Past Medical History Previous Medical History?: Yes Additional medical history: hemorrhoids - Surgical History Past Surgical History?: No - Family History Family history: no significant - Social History Smoking Status: Current Some Day Smoker Substance Use Type: Marijuana - Medications Home Medications: Home Medications Medication Instructions Recorded Confirmed Last Taken Type Docusate Sodium [Colace] 100 mg PO BID #60 capsule 11/01/21 Unknown Rx Phenylephrine HCl/[place] Butter 1 each RC DAILY #10 11/01/21 Unknown Rx [Preparation H Suppository] ED Physical Exam - General Limitations: No Limitations General appearance: alert, in no apparent distress - Head Head exam: Present: atraumatic, normocephalic - Eye Eye exam: Present: normal appearance - ENT ENT exam: Present: mucous membranes moist - Neck Neck exam: Present: normal inspection - Respiratory Respiratory exam: Present: normal lung sounds bilaterally. Absent: respiratory distress - Cardiovascular Cardiovascular Exam: Present: regular rate, normal rhythm. Absent: systolic murmur, diastolic murmur, rubs, gallop - GI/Abdominal GI/Abdominal exam: Present: soft, normal bowel sounds - Rectal Rectal exam: Present: other (external non thrombosed hem/ no bleeding) - Extremities Exam Extremities exam: Present: normal inspection - Back Exam Back exam: Present: normal inspection - Neurological Exam Neurological exam: Present: alert, oriented X3 - Psychiatric Psychiatric exam: Present: normal affect, normal mood - Skin Skin exam: Present: warm, dry, intact, normal color. Absent: rash ED Course Vital Signs 11/01/21 11/01/21 10:05 11:14 Temperature 98.5 F Pulse Rate 92 H 77 Respiratory 18 16 Rate Blood Pressure 133/80 Blood Pressure 124/80 [Right] O2 Sat by Pulse 100 100 Oximetry ED Medical Decision Making - Medical Decision Making a/c hemorrhoids prep h cream not helping has not done suppository educated on hemorrhoid and care. dc home with colace/fiber instructions/ pain management and VT suppository. She understands if VT does not work she should see gen surg for removal. dc home with dc plan of care including diet/activity/meds and follow up. She verbalizes understanding of plan of care. Vital Signs 11/01/21 11/01/21 10:05 11:14 Temperature 98.5 F Pulse Rate 92 H 77 Respiratory 18 16 Rate Blood Pressure 133/80 Blood Pressure 124/80 [Right] O2 Sat by Pulse 100 100 Oximetry - Differential Diagnosis hemorrhoids Critical care attestation.: If time is entered above; I have spent that time in minutes in the direct care of this critically ill patient, excluding procedure time. ED Disposition Clinical Impression: Hemorrhoids Qualifiers: Hemorrhoid type: other Qualified Code(s): K64.8 - Other hemorrhoids Disposition: 01 HOME / SELF CARE / HOMELESS Is pt being admited?: No Does the pt Need Aspirin: No Condition: Stable Instructions: Hemorrhoids, [id number] Additional Instructions: warm baths meds as ordered today may use tylenol or motrin over the counter for pain high fiber diet metamucil over the counter daily no fried or fast food follow up with PCP or GI MD if persists referral below Prescriptions: Docusate Sodium [Colace] 100 mg PO BID #60 capsule Phenylephrine HCl/[place] Butter [Preparation H Suppository] 1 each RC DAILY #10 Referrals: RADHA DUNCAN MD [Staff Physician] - 3-5 Days HEIDI ALVAREZ MD [Staff Physician] - 3-5 Days Time of Disposition: 10:29
[2021-11-01] MEDS ORDERED: traMADol 50 MG TAB PO ONE (10:23)
[2021-11-01] MEDS ORDERED: PHENYLEPHRINE/SHARK LIVER/CCB 0.25/3/85.5%(PREP H) RECT SUPP PR SCH (11:00)
[2021-11-01 11:16] VITALS: BP 124/80
== END 2021-11-01 11:20 | disposition home or self-care (01) ==
LOC: ED 09:31
DX: K64.9 Unspecified hemorrhoids (principal); F17.200 Nicotine dependence, unspecified, uncomplicated; F12.90 Cannabis use, unspecified, uncomplicated
CPT/HCPCS: 99282

== ENCOUNTER 2022-05-17 00:10 | Emergency (ER) | payer OTHER ==
[2022-05-17 02:55] LABS: Color,Urine Yellow (Yellow)
[2022-05-17 02:59] LABS: Mucus,Urine 2+ /HPF; RBC,Urine < 1.0 /HPF (0.0-6.0)
[2022-05-17 05:15] VITALS: BP 112/63
[2022-05-17 05:39] LABS: Basophils % (Auto) 0.4 % (0.0-1.8); Eosinophils # (Auto) 0.3 K/mm3 (0.0-0.4); Eosinophils % (Auto) 5.4 % (0.0-4.3); Hemoglobin 11.9 gm/dl (10.1-14.3); Lymphocytes # (Auto) 1.4 K/mm3 (1.2-5.4); Lymphocytes % (Auto) 24.5 % (13.4-35.0); Mean Corpuscular HGB Conc 35 % (30-34); Mean Corpuscular Volume 86 fl (79-97); Monocytes # (Auto) 0.4 K/mm3 (0.0-0.8); Monocytes % (Auto) 7.4 % (0.0-7.3); Platelet Count 188 K/mm3 (140-440); Red Blood Count 3.94 M/mm3 (3.65-5.03); Red Cell Distribution Width 13.3 % (13.2-15.2)
--- NOTE | 2022-05-17 09:41 | Ultrasound Report ---
ULTRASOUND OBSTETRIC REASON FOR EXAM: vag bleed preg TECHNIQUE: Transabdominal ultrasound was performed to evaluate a first trimester . COMPARISON: None available. FINDINGS: FINDINGS: The pole, yolk sac, and gestational sac are normal in appearance. [place]-rump length: 32 mm. This corresponds with a gestational age of 10 weeks 0 days. heart rate: 173 bpm Perigestational hemorrhage: No evidence of perigestational hemorrhage on the provided images. MATERNAL FINDINGS: The uterus demonstrates an otherwise unremarkable sonographic appearance. The right ovary demonstrates a normal sonographic appearance. The left ovary demonstrates a normal sonographic appearance. Cul-de-sac: There is no free fluid. IMPRESSION: Viable intrauterine . Gestational age is 10 weeks 0 days by ultrasound. Recommend clinical s creening and ultrasound follow-up in the second trimester to screen for anomalies. Signer Name: Darius Torres MD Signed: 05/17/2022 9:36 AM Workstation Name: [id number]
--- NOTE | 2022-05-17 11:40 | Emergency Department Report ---
ED Female HPI - General Chief complaint: Vaginal Bleeding Stated complaint: /SPOTTING BLOOD Time Seen by Provider: 05/17/22 08:13 Source: patient Mode of arrival: Ambulatory Limitations: No Limitations - History of Present Illness Initial comments: LMP 6-18 22 yo comes to er co vag bleeding, light in natures for the last several days. She has not seen or called obgyn. mild cramping no dysuria no vag dc no n/vd/ no fever no chills ambulatory and taking po during exam MD Complaint: vaginal bleeding -: Gradual, days(s) Severity: mild Severity scale (0 -10): 1 Quality: cramping Consistency: intermittent Improves with: none Worsens with: none Are you Now?: Yes Associated Symptoms: denies other symptoms - Related Data Sexually active: Yes Previous Rx's Medication Instructions Recorded Last Taken Type Docusate Sodium [Colace] 100 mg PO BID #60 capsule 11/01/21 Unknown Rx Phenylephrine HCl/[place] Butter 1 each RC DAILY #10 11/01/21 Unknown Rx [Preparation H Suppository] Allergies Allergy/AdvReac Type Severity Reaction Status Date / Time No Known Allergies Allergy Unverified 08/29/21 16:08 ED Review of Systems ROS: Stated complaint: /SPOTTING BLOOD Other details as noted in HPI Comment: All other systems reviewed and negative ED Past Medical Hx - Past Medical History Previous Medical History?: Yes Additional medical history: hemorrhoids - Surgical History Past Surgical History?: No - Family History Family history: no significant - Social History Smoking Status: Current Some Day Smoker Substance Use Type: Marijuana - Medications Home Medications: Home Medications Medication Instructions Recorded Confirmed Last Taken Type Docusate Sodium [Colace] 100 mg PO BID #60 capsule 11/01/21 Unknown Rx Phenylephrine HCl/[place] Butter 1 each RC DAILY #10 11/01/21 Unknown Rx [Preparation H Suppository] ED Physical Exam - General Limitations: No Limitations General appearance: alert, in no apparent distress - Head Head exam: Present: atraumatic, normocephalic - Eye Eye exam: Present: normal appearance - ENT ENT exam: Present: mucous membranes moist - Neck Neck exam: Present: normal inspection - Respiratory Respiratory exam: Present: normal lung sounds bilaterally. Absent: respiratory distress - Cardiovascular Cardiovascular Exam: Present: regular rate, normal rhythm. Absent: systolic murmur, diastolic murmur, rubs, gallop - GI/Abdominal GI/Abdominal exam: Present: soft, normal bowel sounds - Extremities Exam Extremities exam: Present: normal inspection - Back Exam Back exam: Present: normal inspection - Neurological Exam Neurological exam: Present: alert, oriented X3 - Psychiatric Psychiatric exam: Present: normal affect, normal mood - Skin Skin exam: Present: warm, dry, intact, normal color. Absent: rash ED Course Vital Signs 05/17/22 05/17/22 01:39 05:13 Temperature 98.6 F 98.4 F Pulse Rate 82 84 Respiratory 18 18 Rate Blood Pressure 115/66 112/63 O2 Sat by Pulse 100 100 Oximetry ED Medical Decision Making - Lab Data Result diagrams: 05/17/22 05:14 - Radiology Data Radiology results: report reviewed, image reviewed see report - Medical Decision Making Labs 05/17/22 05/17/22 05/17/22 05:14 05:14 05:14 WBC 5.6 RBC 3.94 Hgb 11.9 Hct 34.0 MCV 86 MCH 30 MCHC 35 H RDW 13.3 Plt Count 188 Lymph % (Auto) 24.5 [place] % (Auto) 7.4 H Eos % (Auto) 5.4 H Baso % (Auto) 0.4 Lymph # (Auto) 1.4 [place] # (Auto) 0.4 Eos # (Auto) 0.3 Baso # (Auto) 0.0 Seg Neutrophils % 62.3 Seg Neutrophils # 3.5 HCG, Quant [id number] H Urine Color Urine Turbidity Specific [place] (Man) Ur Protein (Man) Ur Ketones (Man) Ur Nitrite (Man) Urine Bilirubin (Man) Leukocyte Esterase (Man) Urine WBC (Auto) Urine RBC (Auto) U Epithel Cells (Auto) Urine RBC (Manual) Urine Mucus Blood Type O POSITIVE 05/17/22 Unknown WBC RBC Hgb Hct MCV MCH MCHC RDW Plt Count Lymph % (Auto) [place] % (Auto) Eos % (Auto) Baso % (Auto) Lymph # (Auto) [place] # (Auto) Eos # (Auto) Baso # (Auto) Seg Neutrophils % Seg Neutrophils # HCG, Quant Urine Color Yellow Urine Turbidity Clear Specific [place] (Man) 1.030 Ur Protein (Man) Negative Ur Ketones (Man) Negative Ur Nitrite (Man) Negative Urine Bilirubin (Man) Negative Leukocyte Esterase (Man) Negative Urine WBC (Auto) 1.0 Urine RBC (Auto) < 1.0 U Epithel Cells (Auto) 8.0 Urine RBC (Manual) Negative Urine Mucus 2+ Blood Type Vital Signs 05/17/22 05/17/22 01:39 05:13 Temperature 98.6 F 98.4 F Pulse Rate 82 84 Respiratory 18 18 Rate Blood Pressure 115/66 112/63 O2 Sat by Pulse 100 100 Oximetry labs noted ua noted us noted rh pos vss taking po ambulatory dc home with dc plan of care including diet, meds, activity and follow up. - Differential Diagnosis ro ectopic/ab Critical care attestation.: If time is entered above; I have spent that time in minutes in the direct care of this critically ill patient, excluding procedure time. ED Disposition Clinical Impression: Disposition: 01 HOME / SELF CARE / HOMELESS Is pt being admited?: No Does the pt Need Aspirin: No Condition: Stable Instructions: First Trimester of Additional Instructions: FOLLOW UP WITH OBGYN IN 48 HOURS REFERRAL BELOW TYLENOL FOR PAIN PELVIC REST Referrals: RADHA DUNCAN MD [Primary Care Provider] - 3-5 Days CECILE JONES MD [Staff Physician] - 3-5 Days Forms: Work/School Release Form(ED) Time of Disposition: 11:39
== END 2022-05-17 11:45 | disposition home or self-care (01) ==
LOC: ED 00:10
DX: O20.8 Other hemorrhage in early pregnancy (principal); F17.200 Nicotine dependence, unspecified, uncomplicated; Z3A.10 10 weeks gestation of pregnancy; F12.90 Cannabis use, unspecified, uncomplicated; Z72.89 Other problems related to lifestyle; Z79.899 Other long term (current) drug therapy
CPT/HCPCS: 36415; 76801; 81001; 84702; 85025; 86900; 86901; 99284